=== PATIENT | male | born 1990 | race Caucasian/White ===

== ENCOUNTER 2017-06-10 19:10 | Emergency (ER) | payer BC, OTHER ==
[~2017-06-10] VITALS: Ht 188 cm; Wt 133.0 kg
[~2017-06-10 19:10] MED LIST: NAPR1TAB9 PO
[2017-06-10 19:20] VITALS: BP 102/69; PULSE 69; TEMP 36.9; O2SAT 94; Ht 188 cm; Wt 133.0 kg
--- NOTE | 2017-06-10 19:58 | DIAGNOSTIC IMAGING REPORT ---
LEFT TIBIA/FIBULA 2 VIEWS ROUTINE CLINICAL HISTORY: L leg pain trauma. Pain. COMPARISON: None. DISCUSSION: Oblique fracture distal fibula. This is at the level of the lateral malleolus. All remaining osseous structures are unremarkable. There is no evidence for soft tissue swelling. IMPRESSION: Oblique fracture distal fibula. Alignment is anatomic The above report was generated using voice recognition software. It may contain grammatical, syntax or spelling errors. Electronically signed by: Sarthak Burrell M.D. 06/10/2017 7:57 PM Dictated Date/Time: 06/10/2017 7:56 PM
[2017-06-10] MEDS ORDERED: OXYC1TAB3 PO (20:39)
[2017-06-10] MEDS ORDERED: OXYCODONE IR HOME PACK PO ONE (20:45)
--- NOTE | 2017-06-10 23:15 | EMERGENCY ROOM VISIT NOTE ---
History First contact with patient: 19:23 Chief Complaint: LEG PAIN,LEG INJURY Stated Complaint: LEFT KNEE AND ANKLE PAIN History of Present Illness The patient is a 26 year old male who presents to the Emergency Room with complaints of pain between his left knee and ankle after he slipped on a slip and slide, falling onto his left lower extremity. The patient rates his pain a 2 out of 10. He denies any paresthesias or numbness of the left lower extremity , foot or toes. He denies any other injury from this fall, and admits to significant alcohol consumption today. Review of Systems 10 system review was performed and was negative except for pertinent positives and negatives as indicated in history of present illness Past Medical/Surgical History Medical Problems: (1) Fx Orbital Floor-Closed (2) Tobacco Use Disorder Surgical Problems: (1) History of arthroscopic knee surgery Family History No significant family history Social History Smoking Status: Current Every Day Smoker Alcohol Use: occasionally Marital Status: single Housing Status: lives with significant other Occupation Status: employed Current/Historical Medications Scheduled PRN Oxycodone Ir (Roxicodone Ir), 1-2 TAB PO Q4H PRN for Pain Allergies Coded Allergies: No Known Allergies (Unverified , 05/01/11) Physical Exam Vital Signs Date Time Temp Pulse Resp B/P (MAP) Pulse Ox O2 Delivery O2 Flow Rate FiO2 06/10/17 19:20 36.9 69 16 102/69 94 Room Air Physical Exam CONSTITUTIONAL: Healthy and well nourished. Alert and oriented X 3 with positive affect. HEENT: Normocephalic, atraumatic. Pupils equal, round and reactive. NECK: Full active range of motion without discomfort. MUSCULOSKELETAL: Examination shows noticeable edema about the left ankle, with tenderness to palpation from the proximal fibula to the distal tibia. He has no tenderness to palpation across the dorsal midfoot, metatarsals, calcaneus or Achilles tendon. Pedal pulses are intact. INTEGUMENTARY: No rash or other significant dermatologic conditions noted. NEUROLOGIC: Left lower extremity is sensory intact. Medical Decision & Procedures ER Provider Diagnostic Interpretation: My interpretation of left tib-fib x-rays confirms a distal fibular fracture. Ankle mortise is symmetric. Radiologist report is as follows: LEFT TIBIA/FIBULA 2 VIEWS ROUTINE CLINICAL HISTORY: L leg pain trauma. Pain. COMPARISON: None. DISCUSSION: Oblique fracture distal fibula. This is at the level of the lateral malleolus. All remaining osseous structures are unremarkable. There is no evidence for soft tissue swelling. IMPRESSION: Oblique fracture distal fibula. Alignment is anatomic Medications Administered Medications (Trade) Dose Ordered Sig/Roxi Route Start Time Stop Time Status Last Admin Dose Admin Oxycodone HCl (Roxicodone Immediate Rel 5MG [facility] PO 06/10/17 20:45 06/10/17 20:46 DC 06/10/17 21:03 1 HOMEPACK ED Course Patient history and physical exam were performed. Nurse's notes were reviewed. Vital signs were reviewed and normal. The patient refused any analgesics. X- rays of the left leg confirms a distal fibular fracture. An Ortho-Glass posterior splint and crutches were applied. Neurovascular check after splint placement was normal. The patient was provided a home pack and prescription for OxyIR 5 mg. He was also encouraged to alternate ibuprofen and Tylenol for baseline pain relief. He said elevation for additional pain relief. He was instructed to follow-up with Dr. Sparks for further reevaluation and management. The patient was happy with plan of care, voiced understanding of all discharge instructions, and rated his pain a 2 out of 10 at the time of discharge. Medical Decision [place] Drug Monitoring Program Search Results: patient reviewed within database, no issues identified Impression Primary Impression: Closed fracture of left distal fibula Departure Information Prescriptions Oxycodone Ir (Roxicodone Ir) 5 Mg Tab 1-2 TAB PO Q4H Y for Pain, #15 TAB For Initial Treatment Prov: Freddy Ocasio PA 06/10/17 Referrals No Doctor, Assigned (PCP) Patient Instructions [facility] Problem Qualifiers Primary Impression: Closed fracture of left distal fibula Encounter type: initial encounter Fracture morphology: other fracture Qualified Codes: S82.832A - Other fracture of upper and lower end of left fibula, initial encounter for closed fracture
== END 2017-06-10 21:07 | disposition home or self-care (01) ==
LOC: C.EDB 19:11 → C.EDD 21:07
DX: S82.65XA Nondisplaced fracture of lateral malleolus of left fibula, initial encounter for closed fracture (principal); W01.0XXA Fall on same level from slipping, tripping and stumbling without subsequent striking against object, initial encounter; F17.210 Nicotine dependence, cigarettes, uncomplicated